=== PATIENT | female | born 1965 | race Caucasian/White ===

== ENCOUNTER 2018-12-29 07:56 | Day surgery (SDC) | payer OTHER ==
[~2018-12-29] VITALS: Ht 160 cm; Wt 75.0 kg
[~2018-12-29 07:56] MED LIST: ASPI81CH PO; ATOR40TA PO; Atarax10 MG PO; Isosorbide Mono30 MG PO; Lopressor 25 mg25 MG PO; OMEPRAZOLE20 MG PO; PROAIR RESPICL90 MCG IH
--- NOTE | 2018-12-29 09:10 | NUR ---
Pt received from research laboratory technician Fabricio Hand RT pt with 5 urdu sheath with pressure bag ns 500ml. Pt supine states she is comfortable. Awaiting ACT protocl for pull. Pt with vss stable. IV H.L. L AC. Pt with call light. No bleeding or hematoma on right fem site.
[2018-12-29] MEDS ORDERED: AMLO10 PO (11:01)
--- NOTE | 2018-12-29 12:27 | NUR ---
Pt with headach medicated with rx which patient uses at home. Pt significant other at bedside.
--- NOTE | 2018-12-29 13:09 | NUR ---
Pt headach 11/25 1000ml fluid completed, pt ate. Pt has hx. Offered warm cloth.
--- NOTE | 2018-12-29 13:52 | NUR ---
All air removed from tr-band by Fidel Blank at 1245 at 1345 pt trband removed. Pt right radial site cleaned patted dry, applied cloth dot to insertion site. No bleeding or hematoma noted. IV removed at that time cath intact. Pt eating drinking, some releif of headach prior to discharge. H/A level 4/10. Pt discharged via wheel chair with Moshe S/O. Pt verbalizes understanding of medication change and the importance of getting a B/P cuff at home. Pt will follow up for chronic headaches past two months.
--- NOTE | 2018-12-29 13:56 | NUR ---
Discharge at 1400.
== END 2018-12-29 14:00 | disposition home or self-care (01) ==
LOC: MHTC 07:56
DX: R07.9 Chest pain, unspecified (principal); R00.1 Bradycardia, unspecified; R94.31 Abnormal electrocardiogram [ECG] [EKG]; R94.39 Abnormal result of other cardiovascular function study; I10 Essential (primary) hypertension; K21.9 Gastro-esophageal reflux disease without esophagitis; E78.5 Hyperlipidemia, unspecified; Z79.82 Long term (current) use of aspirin; Z79.899 Other long term (current) drug therapy; Z87.891 Personal history of nicotine dependence
CPT/HCPCS: 93458; 99152; 99153; A9270-GY; C1769; C1894; J0360; J0690; J1644; J2060; J2250; J2405; J3010; J7030; Q9967

== ENCOUNTER → 2022-08-19 | Outpatient (CLI) | payer OTHER ==
[~2022-08-19] MED LIST changes: +AMLO10 PO
[2022-08-19 17:16] LABS: BASOPHILS ABSOLUTE AUTO 0.05 K/mm3 (0.00-0.23); BASOPHILS PERCENT AUTO 1 % (0-2); EOSINOPHILS ABSOLUTE AUTO 0.21 K/mm3 (0.00-0.68); EOSINOPHILS PERCENT AUTO 2 % (0-6); Hematocrit 43.6 % (33.0-51.0); Hemoglobin 15.2 g/dL (11.5-16.0); IMMATURE GRAN ABSOLUTE AUTO 0.04 K/mm3 (0.00-0.10); IMMATURE GRAN PERCENT AUTO 1 % (0-1); LYMPHOCYTES ABSOLUTE AUTO 3.08 K/mm3 (0.84-5.20); LYMPHOCYTES PERCENT AUTO 36 % (21-46); MONOCYTES ABSOLUTE AUTO 0.84 K/mm3 (0.16-1.47); MONOCYTES PERCENT AUTO 10 % (4-13); Mean Corpuscular HGB 32.3 pg (26.0-34.0); Mean Corpuscular HGB Conc 34.9 g/dL (31.5-36.5); Mean Corpuscular Volume 93 fL (80-100); Mean Platelet Volume 10.3 fL (9.1-12.4); NEUTROPHILS ABSOLUTE AUTO 4.39 K/mm3 (1.96-9.15); NEUTROPHILS PERCENT AUTO 51 % (41-73); Platelet Count 240 K/mm3 (150-400); RDW Coefficient Variation 13.2 % (11.7-14.2); RDW Standard Deviation 44.6 fL (35.1-46.3); Red Blood Cell Count 4.71 M/mm3 (3.80-5.20); White Blood Cell Count 8.61 K/mm3 (4.00-11.30)
[2022-08-19 17:25] LABS: Albumin, Blood 4.3 g/dL (3.4-5.0); Albumin/Globulin Ratio 1.2 (0.8-1.8); Bilirubin, Total 0.5 mg/dL (0.1-1.0); Bun/Creatinine Ratio 17.9 (12.0-20.0); Calcium, Blood 9.2 mg/dL (8.5-10.1); Creatinine, Blood 0.67 mg/dL (0.40-1.00); Globulin, Blood 3.6 g/dL (2.2-4.0); Potassium, Blood 3.8 mmol/L (3.5-5.5); Total Protein, Blood 7.9 g/dL (6.4-8.2)
== END ==
LOC: LAB SHORT 17:11 → LAB 17:11
PROVIDERS: Physician Assistant
DX: R10.9 Unspecified abdominal pain (principal)
CPT/HCPCS: 80053; 83690; 85025

== ENCOUNTER → 2025-03-04 | Outpatient (CLI) | payer BC ==
[2025-03-04 10:52] LABS: Campylobacter Sp Not Detected (NOT DETECT)
[2025-03-04 10:53] LABS: E. Coli O157 Not Detected (NOT DETECT); Enteroaggregative E. coli-EAEC Not Detected (NOT DETECT); Enteropathogenic E. coli-EPEC Not Detected (NOT DETECT); Enterotoxigenic E. coli-ETEC Not Detected (NOT DETECT); Salmonella Sp Not Detected (NOT DETECT); Shiga Toxin-prod E. coli-STEC Not Detected (NOT DETECT); Shigella/Enteroin E. coli-EIEC Not Detected (NOT DETECT); Vibrio Sp Not Detected (NOT DETECT)
[2025-03-06 14:44] LABS: CALPROTECTIN,FECAL 82 ug/g (<=49)
== END ==
LOC: LAB 05:30 → LAB SHORT 05:30
PROVIDERS: Student in an Organized Health Care Education/Training Program
DX: K52.9 Noninfective gastroenteritis and colitis, unspecified (principal)
CPT/HCPCS: 83993; 87507